=== PATIENT | female | born 1985 | race Caucasian/White ===

== ENCOUNTER 2018-12-31 05:30 | Inpatient (IN) | payer SELFPAY ==
--- NOTE | 2018-12-25 14:33 | HP.PCM_ITS ---
History and Physical Date of Admission: 01/14/19 Pre-Op History and Physical ? HPI: The patient is a 33 year old female presenting for pre-operative visit. She is scheduled for possible tubal ligation or bilateral salpingectomy, for 39 weeks, h/o c/s on 12/31/18. ??Procedure discussed along with risks, benefits and complications. ? Other alternatives discussed for management. Consent form signed? Yes. ? ? ? PAST?MEDICAL?HISTORY PAST MEDICAL HISTORY Diagnosis Date ? Anemia during in first trimester 06/19/2018 ? Diverticulitis ? ? Ovarian cyst ? ? ? PAST?SURGICAL?HISTORY PAST SURGICAL HISTORY Procedure Laterality Date ? DELIVER IN ANT/ CARE ? 02/06/2011,11/10/12 ? DELIVERY ONLY ? 04/01/16 ? , low transverse ? LAPAROSCOPY, SURGICAL, APPENDECTOMY ? 06-17-11 ? LX UMBILICAL HERNIA REPAIR ? 06-17-11 ? PAST SURGICAL HISTORY OF ? ? ? REMOVAL OF FORIEGN BODY FORM RIGHT FOOT ? ? CURRENT?MEDICATIONS ? Current Outpatient Prescriptions: diphenhydramine HCl (UNISOM, DIPHENHYDRAMINE, ORAL) Take by mouth. Disp: Rfl: B Complex Vitamins capsule Take 1 capsule by mouth once daily. Disp: Rfl: PSYLLIUM SEED, WITH DEXTROSE, (FIBER ORAL) Take ?by mouth. Disp: Rfl: DOCOSAHEXANOIC ACID/EPA (FISH OIL ORAL) Take ?by mouth. ? Disp: Rfl: FSPZKNOM-RX-CAX-FE-FA TAB TAKE ONE DAILY Disp: Rfl: 0 ? No current facility-administered medications for this visit. ? ALLERGIES: Patient has no known allergies. ? PERSONAL HISTORY: SOCIAL?HISTORY Social History ??Marital status: ?Spouse name: CAM ?Years of education: 8 ?Number of children: 3 ? 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 Social History Main Topics ??Smoking status: Never Smoker ?Smokeless tobacco: Never Used ?Alcohol use: No ?Drug use: No ?Sexual activity: Yes ?Partners with: Male ? 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 ? ? FAMILY HISTORY: FAMILY?HISTORY FAMILY HISTORY Problem Relation Age of Onset ? No Known Problems Mother ? ? Arthritis Father ?Rheumatoid ? No Known Problems Brother ? ? No Known Problems Brother ? ? other (heart murmur) Sister ? ? No Known Problems Sister ? ? No Known Problems Sister ? ? other (pancreatitis) Maternal Grandmother ? ? Heart Maternal Grandfather ? ? No Known Problems Paternal Grandmother ? ? Cancer Paternal Grandfather ?BRAIN CANCER ? No Known Problems Son ? ? other (ADD) Son ? ? No Known Problems Other ? ? No Known Problems Son ? ? REVIEW OF SYMPTOMS: GENERAL: denies fevers or chills ENDOCRINOLOGY: has not been on steroids Cardiology : denies palpitations or chest pain Respiratory: denies SOB , mild chronic dry cough, mild Hematology: denies history of prolonged bleeding or easy bruising or VTE Allergy: Denies history of personal or family history of allergy to anesthesia ? ? PHYSICAL EXAMINATION: ? VITALS: Last menstrual period 04/02/2018, currently . ? GENERAL: ?The patient is well nourished, well hydrated in no acute distress. ?, The patient is oriented to time, place, and person. NECK: Supple. No lynphadenopathy, normal thyroid, no thyromegaly. LUNGS: Clear to auscultation bilaterally. no wheezes, rhonchi or rales HEART: Regular rate and rhythm, Normal heart sounds and No murmurs or gallops GENITALIA: Normal external genitalia, Urethral meatus normal, Bladder nontender, normal vagina and normal vaginal tone, normal cervix, normal uterus, size and consistency, normal adnexa without masses or tenderness and perineum WNL ? IMPRESSION: 39 week , considering sterilization ? PLAN: ??The risks/benefits/alternatives and personal involved for the planned repeat c/s, coinsidering tubal or bilateral salpingectomy?were reviewed with the patient. Her questions were answered to her satisfaction and she desires to proceed. ?Consent was signed. ?I reviewed with her postop instructions and expectations. ?Would elect for sterilization if any complications or concerns for maternal/ increased risks during future pregnancies. ?D/w her cannot predict all risks, risks of hemorrhage, previa, acreta increase each regardless of outcome this delivery. ?She states understanding. ? ? I have reviewed and updated past medical and surgical history, medications and allergies this history and physical was performed in my office on 12/25/2018 Helen Fuentes M.D.
[2018-12-31] VITALS (19 sets, daily range): BP systolic 85–125; BP diastolic 36–77; PULSE 62–93; RESP 10–18; TEMP 36–36.6; O2SAT 97–100; BMI 44.5
[2018-12-31] MEDS: Lactated Ringers 1,000 ML 999 ML IV (06:14)
[2018-12-31 06:32] LABS: Hematocrit 38.3 % (37-47); Hemoglobin 12.6 g/dl (12.0-15.0); Mean Corp Hgb Conc 32.9 g/gl (32-36); Mean Corpuscular Hgb 30.1 pg (27.0-32.0); Mean Corpuscular Volume 91.6 fL (81-99); Mean Platelet Vol. 12.1 fl (6.2-12.0); Platelet Count 240 K/mm3 (150-450); RBC Distribution Width CV 13.9 % (11.6-14.6); RBC Distribution Width SD 45.6 fl (35.1-43.9); Red Blood Count 4.18 M/mm3 (4.2-5.4); White Blood Count 9.5 K/mm3 (4.4-11.0)
[2018-12-31 06:35] LABS: Scan Indicated on CBC? Y/N NO
[2018-12-31] MEDS: Lactated Ringers 1,000 ML 150 ML IV (07:21)
[2018-12-31] MEDS: Sodium Citrate/Citric Acid 30 ML UDC PO (07:22)
[2018-12-31] MEDS: Cefazolin 2 GM in 0.9% Normal Saline 100 ML IV (08:20)
[2018-12-31] MEDS: Oxytocin 30 units/NS 500 ml 30 UNITS/500 ML IV.SOLN 167 UNITS IV (08:36)
[2018-12-31] MEDS: Ketorolac 30 MG/ML Syringe IV ×3 (09:00→20:32)
--- NOTE | 2018-12-31 09:06 | OP.PCM_ITS ---
Report of Operation Date of Procedure: 12/31/18 Pre-Operative Diagnosis: 39 week , previous c/s Post-Operative Diagnosis: same Surgery/Procedure Performed:: Repeat low transverse section Via Pfannenstiel skin incision Description of Surgical Findings:: Dermal uterus tubes and ovaries. Normal placenta with three-vessel cord. No significant intraperitoneal adhesions. shooting gallery operator: Miya Petersen Type of Anesthesia:: Spinal Special Medications: none Specimen's removed: none Drains: graves Estimated Blood Loss (mL): 800cc Description of Procedure: The patient was taken to the operating room. She was prepped and draped in the dorsal supine position with a leftward tilt. A Pfannenstiel skin incision was made approximately 2 cm above the symphysis pubis and carried through to underlying layer fascia with the scalpel. The fascia was incised incised in the midline and extended laterally with the Portillo scissors. The fascia was dissected off the rectus muscles with blunt and sharp dissection. The rectus muscles were in the midline and the peritoneum was entered bluntly. The peritoneal incision was stretched and the bladder blade was placed. Bladder peritoneum was dissected down with the Metzenbaum scissors and blunt dissection. The uterine incision was made in a low transverse fashion with the scalpel and extended superiorly and inferiorly with blunt dissection. The amniotic membranes were ruptured bluntly and clear amniotic fluid returned. The 's head was brought to the incision in the flexed position and delivered without difficulty. The remainder of the was delivered with gentle traction and fundal pressure in the standard fashion. The mouth and nares were bulb suctioned. The cord was clamped and cut as the was stimulated. Cord clamping was delayed. The was handed off to the waiting nursing staff. The placenta was delivered with fundal massage and gentle traction in the standard fashion. The uterus was exteriorized and cleared of all clots and debris. The cervix was dilated with a ring forcep. The uterine incision was closed with #1 Vicryl in a running locked fashion. A second layer of the same suture was used in an imbricating fashion. Aggravate suture was needed near the midline and then hemostasis was the incision was examined and was found to be hemostatic. The uterus was placed back into the peritoneal cavity and hemostasis was again confirmed. The rectus muscles were examined and any bleeding was Bovie cauterized. The parietal peritoneum and rectus muscles were closed en bloc with an 0 Vicryl running suture. The surgical teams outer gloves were then changed. The rectus fascia was examined and any bleeding was Bovie cauterized and the rectus fascia was closed with 1 PDS suture in a running standard fashion. The subcutaneous tissue was examining and any bleeding was Bovie cauterized. The subcutaneous tissue was reapproximated with 3-0 Vicryl suture. The skin was closed in a subcuticular fashion by the ROOM SERVICE SUPERVISOR with me present in the labor and delivery suite. I performed the remainder of the procedure with assistance. All sponge, lap, and needle counts were correct. The patient was taken to her room for recovery in a stable condition. Grafts/Implants Used: none - Complications none - Admit VTE Documentation VTE Present on Admission: No VTE Mechan Device Prophylaxis: SCD's VTE Pharm Prophylaxis ordered?: No Reason prophylaxis not ordered:: Procedure Not Indicated Delivery Classification: Scheduled Final BRITTANY: 01/07/19 Gestational age: 39 Weeks and 0 Days Indications for : Repeat Elective Amniotic Membrane Rupture Type: Artificial Amniotic Fluid Description: Clear Placenta Disposition: [facility] Drain: Graves to straight drain Fluids Replaced: 1000 cc LR and pitocin Cord Entanglement: None Cord Vessel Description: 3 Vessels Infant Gender: Male (1 minute): 8 (5 minute): 9 Delayed cord clamping: Yes
[2018-12-31] MEDS: Lactated Ringers 1,000 ML 100 ML IV (17:00)
[2019-01-01] VITALS (7 sets, daily range): BP systolic 97–117; BP diastolic 52–73; PULSE 97–111; RESP 16–18; TEMP 36.3–37.2; O2SAT 96–100
[2019-01-01] MEDS: 0.9% Saline Lock 10 ML Syringe IV ×4 (02:37→20:47)
[2019-01-01] MEDS: Ketorolac 30 MG/ML Syringe IV ×3 (02:37→14:18)
[2019-01-01 05:35] LABS: Hemoglobin 10.8 g/dl (12.0-15.0); Mean Corp Hgb Conc 32.7 g/gl (32-36); Mean Corpuscular Hgb 30.1 pg (27.0-32.0); Mean Corpuscular Volume 91.9 fL (81-99); Mean Platelet Vol. 11.3 fl (6.2-12.0); Platelet Count 174 K/mm3 (150-450); RBC Distribution Width CV 13.8 % (11.6-14.6); RBC Distribution Width SD 45.6 fl (35.1-43.9); Red Blood Count 3.59 M/mm3 (4.2-5.4); White Blood Count 11.1 K/mm3 (4.4-11.0)
[2019-01-01 06:00] LABS: Scan Indicated on CBC? Y/N NO
--- NOTE | 2019-01-01 08:47 | PCM.PN.OB ---
Subjective: pain well controlled, average lochia, no N/V. - Physical Exam General: Alert, Cooperative, No apparent distress Abdomen: Soft, Distended - mildly, softly, Tender - appropriately Skin: Incision - bandage clean, dry and intact Vital Signs Temp Pulse Resp BP Pulse Ox 97.4 F L 98 18 97/52 L 96 01/01/19 05:00 01/01/19 05:00 01/01/19 05:00 01/01/19 05:00 01/01/19 05:00 Oxygen Delivery Method Room Air Weight: 114 kg Body Mass Index (BMI) 44.5 Intake and Output for Last 24 Hours 12/30/18 12/31/18 01/01/19 23:59 23:59 23:59 Intake Total 1352 / 1352 2111 / 2111 Output Total 975 / 975 1575 / 1575 Balance 377 / 377 536 / 536 Laboratory Tests Past 24 Hrs 01/01/19 05:14 WBC 11.1 H RBC 3.59 L Hgb 10.8 L Hct 33.0 L MCV 91.9 MCH 30.1 MCHC 32.7 RDW 13.8 RDW Differential 45.6 H Plt Count 174 MPV 11.3 Medical Necessity - Tobacco Use Smoking Status: Never smoker Assessment/Plan POD#1 doing well routine care infant and doing well
[2019-01-01] MEDS: Naproxen 250 MG Tablet PO (21:02)
[2019-01-01] MEDS: oxyCODONE 5 MG Tablet PO (22:14)
[2019-01-02 02:25] VITALS: BP 108/59; PULSE 85; RESP 16; TEMP 36.4
[2019-01-02] MEDS: oxyCODONE 5 MG Tablet PO ×2 (07:03→12:45)
[2019-01-02 08:15] VITALS: BP 117/68; PULSE 73; RESP 16; TEMP 36.9; O2SAT 98
--- NOTE | 2019-01-02 08:47 | DCINST_ITS ---
Discharge Diet: No Restrictions Discharge Activity: May not drive while taking narcotic pain medications., May Shower May resume sexual activity in: 4-6 weeks Weight Bearing Status: Weight bearing as tolerated Call your doctor if your incision/area has: Continuous Slow Oozing, Sudden Increased Bleeding, Increased Pain/ Swelling, Increased Redness, Foul Smelling Discharge, Swelling at the incision site Cleanse incision/area with: Soap & Water Additional Instructions: If you experience any of the following, contact your healthcare provider. * Bleeding that soaks a pad every hour for 2 hours * Fever 100.4 or higher * Unrelieved incision or abdominal pain * Swelling, redness, discharge or bleeding from your incision or episiotomy site * Your incision begins to separate * Problems urinating (including inability to urinate or burning while urinating). * Visual changes * Severe headache * Flu-like symptoms * Pain or redness in one of both of your breasts * Pain, warmth, tenderness or swelling in your legs, especially the calf area * Frequent nausea and vomiting * Symptoms of depression or anxiety If you experience any of the following, call 911 or go to the nearest Emergency Room. * Chest pain * Problems breathing * Seizure activity * Partial or complete paralysis of a body part, slurred speech, weakness or drooping of the face, or a sudden inability to walk or hold your balance Allergies/Adverse Reactions: Allergies No Known Allergies Allergy (Unverified 11/08/17 11:12) Medications to take at Discharge Vits [Prenatabs FA ] 1 tablet PO DAILY 12/31/18 Oxycodone [Oxyir] 5 - 10 mg PO Q8H PRN PRN 5 Days #15 tab 01/02/19 The following prescriptions were given: Oxycodone [Oxyir] 5 - 10 mg PO Q8H PRN PRN 5 Days #15 tab PRN Reason: Mod-Severe Pain () Follow-Up: Call to make an appointment with your doctor for an incision check in 1-2 weeks. You will also need a 6 week post- follow up appointment. Test results from this visit will be discussed in further detail at your follow- up appointment, if applicable. Primary Care Physician: Care Physician,No Primary [Primary Care Provider] -
--- NOTE | 2019-01-02 08:49 | PCM.PN.OB ---
Subjective: No complaints - Physical Exam General: Alert, Oriented x3 Abdomen: Soft, Non Tender, Non-Distended - ff mid & below umb; incision - bandage c/d/i Extremities: No Calf Tenderness, Edema - 1+ equal & bilateral Vital Signs Temp Pulse Resp BP Pulse Ox 97.5 F L 85 16 108/59 L 100 01/02/19 02:25 01/02/19 02:25 01/02/19 02:25 01/02/19 02:25 01/01/19 08:40 Oxygen Delivery Method Room Air Weight: 251 lb 5.231 oz Body Mass Index (BMI) 44.5 Intake and Output for Last 24 Hours 12/31/18 01/01/19 01/02/19 23:59 23:59 23:59 Intake Total 1352 / 1352 2111 / 2111 Output Total 975 / 975 3575 / 3575 Balance 377 / 377 -1464 / -1464 Medical Necessity - Tobacco Use Smoking Status: Never smoker Assessment/Plan POD#2 D/c home later today per patient request
[2019-01-02 13:30] VITALS: BP 116/69; PULSE 76; RESP 16; TEMP 36.7; O2SAT 98
== END 2019-01-02 13:35 | disposition home or self-care (01) | DRG 788 ==
PROVIDERS: Admitting Provider Obstetrics & Gynecology; Referring Provider Obstetrics & Gynecology; Visit Provider Obstetrics & Gynecology
PROC: 10D00Z1 Extraction of Products of Conception, Low, Open Approach (ICD-10-PCS; CPT 59514; principal; 2018-12-31 07:45)
DX: O34.211 Maternal care for low transverse scar from previous cesarean delivery (principal); Z3A.39 39 weeks gestation of pregnancy; Z37.0 Single live birth
CPT/HCPCS: 85027; 86850; 86900; 99218; J7120; A4216; G0378; J2405